=== PATIENT | female | born 1980 | race Caucasian/White ===

== ENCOUNTER 2020-03-09 13:30 | Emergency (ER) | payer MEDICAID ==
[~2020-03-09] VITALS: Ht 157.5 cm; Wt 90.9 kg
[2020-03-09] MEDS ORDERED: cephalexin 250mg capsule PO ONE (14:55)
[2020-03-09] MEDS ORDERED: HYDROcodone/acetaminophen 10/325mg tab PO ONE (14:55)
[2020-03-09] MEDS ORDERED: HYDR-4353 PO (14:57)
[2020-03-09] MEDS ORDERED: CEPH-572 PO (14:57)
[2020-03-09 15:31] VITALS: BP 125/69
== END 2020-03-09 15:35 | disposition home or self-care (01) ==
LOC: ER 13:30
DX: S91.312A Laceration without foreign body, left foot, initial encounter (principal); E11.9 Type 2 diabetes mellitus without complications; Z79.2 Long term (current) use of antibiotics; Z79.899 Other long term (current) drug therapy; W25.XXXA Contact with sharp glass, initial encounter; Y93.89 Activity, other specified; Y92.89 Other specified places as the place of occurrence of the external cause; Y99.8 Other external cause status
CPT/HCPCS: 99284